=== PATIENT | female | born 1965 | race Two or more races ===

== ENCOUNTER 2023-01-17 20:04 | Emergency (ER) | payer MEDICAID, OTHER ==
[~2023-01-17] VITALS: Ht 162.6 cm; Wt 79.6 kg
[2023-01-17 20:28] VITALS: BP 118/57; PULSE 87; RESP 18; O2SAT 98
== END 2023-01-18 00:10 | disposition left against medical advice (07) ==
LOC: ER 20:04
DX: J02.9 Acute pharyngitis, unspecified (principal); H92.03 Otalgia, bilateral; Z53.21 Procedure and treatment not carried out due to patient leaving prior to being seen by health care provider